=== PATIENT | female | born 1965 | race Two or more races ===

== ENCOUNTER 2018-06-22 13:30 | Outpatient (CLI) | payer OTHER ==
[~2018-06-22] VITALS: Ht 157.5 cm; Wt 64.0 kg
[2018-06-22 13:00] VITALS: BP 139/81
--- NOTE | 2018-06-22 19:45 | Consultation ---
DATE OF CONSULTATION: 06/22/2018 GASTROENTEROLOGY CONSULTATION CHIEF COMPLAINT: Chronic GERD and need for screening colonoscopy. HISTORY OF PRESENT ILLNESS: This is a 52-year-old female with history of IBS and history of chronic gastroesophageal reflux disease on PPI with minimum relief, was referred to us for evaluation for esophagogastroduodenoscopy and colonoscopy. PAST MEDICAL HISTORY: 1. IBS. 2. Hypertension. 3. Palpitation. PAST SURGICAL HISTORY: History of large mass removed from the left flank area many years ago. MEDICATIONS: Please see medication reconciliation list. ALLERGIES: No known drug allergies. FAMILY HISTORY: Grandfather had gastric cancer. SOCIAL HISTORY: The patient denies any tobacco or IV drug abuse. Drinks socially. REVIEW OF SYSTEMS: A 10-point review of systems was performed and pertinent positives in HPI. PHYSICAL EXAMINATION: VITAL SIGNS: Temperature 97.7, pulse 86, respirations 20, and blood pressure is 139/81. HEENT: Normocephalic and atraumatic. Sclerae anicteric. NECK: Supple. No evidence of lymphadenopathy. CARDIOVASCULAR: Regular rate and rhythm. Plus S1 and S2. No obvious murmur. LUNGS: Clear to auscultation bilaterally. ABDOMEN: Positive bowel sounds. Soft and nontender. No rebound. No guarding. No peritoneal sign. EXTREMITIES: No cyanosis, no clubbing, no edema. ASSESSMENT AND PLAN: This is a 52-year-old female with chronic GERD and need for screening colonoscopy. We will plan for endoscopy and colonoscopy. The patient was informed about the risks and benefits of the procedure. She was given instruction for the preparation and also prescription for GoLYTELY. We will plan to schedule her as soon as the insurance authorization is obtained. Lavell Angeles M.D. DR: BEE JOB#: [id number] CC:
[2018-06-23] MEDS ORDERED: CARAFATE1 G1 ORAL (08:26)
[2018-06-23] MEDS ORDERED: ZANTAC150 MG ORAL (08:26)
[2018-06-23] MEDS ORDERED: OMEPRAZOLE40 M1 ORAL (08:26)
[2018-06-23] MEDS ORDERED: METOPROLOL SUCC25 MG ORAL (08:26)
[2018-06-23] MEDS ORDERED: AMLODIPINE BESYL5 MG ORAL (08:26)
== END 2018-06-22 16:09 | disposition home or self-care (01) ==
LOC: PAN 13:30
DX: K21.9 Gastro-esophageal reflux disease without esophagitis (principal); K58.9 Irritable bowel syndrome, unspecified; I10 Essential (primary) hypertension; Z80.0 Family history of malignant neoplasm of digestive organs
CPT/HCPCS: 99202

== ENCOUNTER 2018-10-20 09:22 | Outpatient (CLI) | payer MEDICAID ==
[~2018-10-20 09:22] MED LIST: AMLODIPINE BESYL5 MG ORAL; CARAFATE1 G1 ORAL; METOPROLOL SUCC25 MG ORAL; OMEPRAZOLE40 M1 ORAL; ZANTAC150 MG ORAL
--- NOTE | 2018-10-20 09:59 | General Progress Note ---
Assessment/Plan Problem List: (1) Gastritis ICD Codes: K29.70 - Gastritis, unspecified, without bleeding SNOMED: 9170760 (2) Diverticulosis ICD Codes: K57.90 - Diverticulosis of intestine, part unspecified, without perforation or abscess without bleeding SNOMED: 322953235 (3) Hemorrhoids ICD Codes: K64.9 - Unspecified hemorrhoids SNOMED: 73758044 Assessment/Plan: ppi daily repeat colonoscopy in 5 years Subjective ROS Limited/Unobtainable: Yes Allergies: Coded Allergies: No Known Allergies (Unverified , 06/23/18) Objective General Appearance: alert EENT: normal ENT inspection Neck: supple Cardiovascular: normal rate Respiratory/Chest: decreased breath sounds Abdomen: normal bowel sounds, non tender, soft Extremities: non-tender Lavell Angeles MD Oct 20, 2018 09:59
== END 2018-10-20 11:22 | disposition home or self-care (01) ==
LOC: PAN 09:22
DX: K29.70 Gastritis, unspecified, without bleeding (principal); K57.90 Diverticulosis of intestine, part unspecified, without perforation or abscess without bleeding; K64.9 Unspecified hemorrhoids

== ENCOUNTER 2019-08-04 12:29 | Outpatient (CLI) | payer MEDICAID ==
--- NOTE | 2019-08-04 13:06 | General Progress Note ---
Assessment/Plan Assessment/Plan: Assessment/Plan Problem List: (1) Gastritis ICD Codes: K29.70 - Gastritis, unspecified, without bleeding SNOMED: 4543328 (2) Diverticulosis ICD Codes: K57.90 - Diverticulosis of intestine, part unspecified, without perforation or abscess without bleeding SNOMED: 113331048 (3) Hemorrhoids ICD Codes: K64.9 - Unspecified hemorrhoids SNOMED: 67304702 Assessment/Plan: ppi daily add Align add bentyl prn colonoscopy in 2023 Subjective ROS Limited/Unobtainable: Yes Allergies: Coded Allergies: No Known Allergies (Unverified , 06/23/18) Objective General Appearance: alert EENT: normal ENT inspection Neck: supple Cardiovascular: normal rate Respiratory/Chest: decreased breath sounds Abdomen: normal bowel sounds, non tender, soft Extremities: non-tender Lavell Angeles MD Aug 04, 2019 13:06
[2019-08-04 15:02] VITALS: BP 120/75
== END 2019-08-04 14:29 | disposition home or self-care (01) ==
LOC: PAN 12:29
DX: K29.70 Gastritis, unspecified, without bleeding (principal); K57.90 Diverticulosis of intestine, part unspecified, without perforation or abscess without bleeding; K64.9 Unspecified hemorrhoids